=== PATIENT | male | born 1995 | race Caucasian/White ===

== ENCOUNTER 2019-06-15 09:19 | Emergency (ER) | payer MEDICAID ==
[~2019-06-15] VITALS: Ht 167.6 cm; Wt 62.8 kg
--- NOTE | 2019-06-15 10:04 | NUR ---
DISCUSSED PT RECENT HX AND ADMISSION TO [place] FOR [facility] AND HAD CENTRAL LINE, PT HAS DRESSING TO RIGHT UPPER CHEST, NO DRAINAGE OR BLOOD NOTED TO DRESSING, PT NOW AMBULATORY TO XRAY WITH STEADY GAIT.
--- NOTE | 2019-06-15 10:17 | NUR ---
SBAR TO SHAYNA AND GARRY ESCALANTE, GAVE RECENT HX OF ADMISSION INFO AND THAT PT IS GETTING XRAY PER ORDERS AND HAVE NOT ASSESSED PT YET PT WAS IN RADIOLOGY.
[2019-06-15] MEDS ORDERED: ONDA4TAB12 PO (10:28)
[2019-06-15] MEDS ORDERED: ondansetron 4mg rapidly disintigrating tab PO ONE (10:30)
[2019-06-15 10:46] VITALS: BP 108/62
== END 2019-06-15 10:48 | disposition home or self-care (01) ==
LOC: ER 09:20
DX: R11.0 Nausea (principal); R05 Cough; F17.200 Nicotine dependence, unspecified, uncomplicated; Z87.01 Personal history of pneumonia (recurrent); Z79.899 Other long term (current) drug therapy
CPT/HCPCS: 71046; 99283

== ENCOUNTER 2019-06-15 16:34 | Emergency (ER) | payer MEDICAID ==
[~2019-06-15 16:34] MED LIST: ONDA4TAB12 PO
--- NOTE | 2019-06-15 17:02 | NUR ---
Patient left W/O being seen was accompanied by staff member of [facility].
== END 2019-06-15 17:04 | disposition left against medical advice (07) ==
LOC: ER 16:34
DX: Z00.8 Encounter for other general examination (principal); Z53.21 Procedure and treatment not carried out due to patient leaving prior to being seen by health care provider

== ENCOUNTER 2019-06-15 17:37 | Emergency (ER) | payer MEDICAID | END 2019-06-15 19:20 | disposition left against medical advice (07) | LOC: ER 17:38 | DX: R45.851 Suicidal ideations (principal); Z53.21 Procedure and treatment not carried out due to patient leaving prior to being seen by health care provider ==

== ENCOUNTER 2019-07-16 10:29 | Emergency (ER) | payer MEDICAID ==
[~2019-07-16] VITALS: Ht 167.6 cm; Wt 69.2 kg
[2019-07-16 10:32] VITALS: BP 118/62
[2019-07-16] MEDS ORDERED: HYDROcodone/acetaminophen 10/325mg tab PO ONE (11:40)
[2019-07-16] MEDS ORDERED: AMOX-422 PO (11:40)
== END 2019-07-16 12:01 | disposition home or self-care (01) ==
LOC: ER 10:29
DX: K04.7 Periapical abscess without sinus (principal); Z87.01 Personal history of pneumonia (recurrent)
CPT/HCPCS: 99283

== ENCOUNTER 2019-07-26 20:20 | Emergency (ER) | payer MEDICAID ==
[~2019-07-26] VITALS: Ht 167.6 cm; Wt 69.0 kg
[2019-07-26 20:22] VITALS: BP 116/54
[2019-07-26] MEDS ORDERED: MUPI22OI30 TOP (21:01)
== END 2019-07-26 21:10 | disposition home or self-care (01) ==
LOC: ER 20:21
DX: S00.31XA Abrasion of nose, initial encounter (principal); L08.9 Local infection of the skin and subcutaneous tissue, unspecified; Z79.899 Other long term (current) drug therapy; X58.XXXA Exposure to other specified factors, initial encounter; Y93.89 Activity, other specified; Y92.89 Other specified places as the place of occurrence of the external cause; Y99.8 Other external cause status
CPT/HCPCS: 99283

== ENCOUNTER 2019-08-20 12:23 | Emergency (ER) | payer MEDICAID ==
[~2019-08-20] VITALS: Ht 167.6 cm; Wt 68.0 kg
[2019-08-20 12:35] VITALS: BP 106/57
--- NOTE | 2019-08-20 14:55 | NUR ---
TC TO PATIENT TO HAVE HIM RETURN TO ER D/T INGESTION ERROR. PATIENTS PHONE NUMBER LISTED IS [facility] AND PATIENT IS NOT RESIDING THERE.
== END 2019-08-20 14:57 | disposition left against medical advice (07) ==
LOC: ER 12:25
DX: Z53.21 Procedure and treatment not carried out due to patient leaving prior to being seen by health care provider (principal)

== ENCOUNTER 2019-08-22 11:16 | Emergency (ER) | payer MEDICAID ==
[~2019-08-22] VITALS: Ht 167.6 cm; Wt 70.9 kg
[2019-08-22] MEDS ORDERED: ondansetron 4mg rapidly disintigrating tab PO ONE (12:15)
[2019-08-22] MEDS ORDERED: normal saline 1000ML IV soln IVB ONE (13:15)
[2019-08-22 13:38] VITALS: BP 118/97
== END 2019-08-22 14:09 | disposition home or self-care (01) ==
LOC: ER 11:16
DX: F15.10 Other stimulant abuse, uncomplicated (principal); R00.0 Tachycardia, unspecified; R11.0 Nausea; F17.200 Nicotine dependence, unspecified, uncomplicated; Z98.890 Other specified postprocedural states; Z79.899 Other long term (current) drug therapy
CPT/HCPCS: 99283; J7030

== ENCOUNTER 2019-08-24 14:23 | Emergency (ER) | payer MEDICAID ==
[~2019-08-24] VITALS: Ht 162.6 cm; Wt 68.0 kg
[2019-08-24 14:29] VITALS: BP 134/59
== END 2019-08-24 15:21 | disposition home or self-care (01) ==
LOC: ER 14:24
DX: F15.10 Other stimulant abuse, uncomplicated (principal); Z98.890 Other specified postprocedural states; Z79.899 Other long term (current) drug therapy
CPT/HCPCS: 99284

== ENCOUNTER 2019-11-01 02:07 | Emergency (ER) | payer MEDICAID ==
[~2019-11-01] VITALS: Ht 167.6 cm; Wt 63.6 kg
[2019-11-01 02:33] VITALS: BP 121/66
--- NOTE | 2019-11-01 02:45 | NUR ---
PT VOIDING FOR [facility]A AND CHANGED INTO [facility] [employer]
--- NOTE | 2019-11-01 02:49 | NUR ---
LAB HERE FOR DRAW
[2019-11-01 02:59] LABS: BASOPHILS # (AUTO) 0.1 X10'3 (0-0.2); BASOPHILS % (AUTO) 0.8 % (0-1); EOSINOPHILS # (AUTO) 0.2 X10'3 (0-0.9); EOSINOPHILS % (AUTO) 2.2 % (0-6); HEMATOCRIT 40.3 % (42.0-52.0); HEMOGLOBIN 13.9 g/dl (14.0-17.9); LYMPHOCYTES # (AUTO) 3.8 X10'3 (1.1-4.8); LYMPHOCYTES % (AUTO) 47.5 % (21-51); MEAN CORPUSCULAR HGB CONC 34.5 g/dL (33.0-36.5); MEAN CORPUSCULAR VOLUME 89.6 FL (78-98); MONOCYTES # (AUTO) 0.6 X10'3 (0-0.9); MONOCYTES % (AUTO) 7.4 % (2-12); NEUTROPHILS # (AUTO) 3.4 X10'3 (1.8-7.7); NEUTROPHILS % (AUTO) 42.1 % (42-75); PLATELET COUNT 227 X10'3 (140-440); RED BLOOD COUNT 4.49 X10'6 (4.70-6.10); RED CELL DISTRIBUTION WIDTH 12.9 % (11.5-14.5)
[2019-11-01 02:59] LABS: CLARITY,URINE CLEAR (Clear); COLOR,URINE YELLOW (Yellow); GLUCOSE, URINE NEGATIVE (Neg); KETONES,URINE NEGATIVE (Neg); LEUKOCYTE ESTERASE ,URINE NEGATIVE (Neg); NITRITES, URINE NEGATIVE (Neg); OCCULT BLOOD,URINE TRACE-INTACT (Neg); PROTEIN,URINE NEGATIVE (Neg); UROBILINOGEN,URINE 0.2 E.U/dL (0.2-1.0)
--- NOTE | 2019-11-01 03:00 | NUR ---
PT BELONGINGS LOGGED BY SOLEDAD KINNEY AND LOCKED IN [address] LOCKERS
[2019-11-01 03:04] LABS: UA COLLECTION TYPE URINAL
[2019-11-01 03:06] LABS: BACTERIA,URINE NONE SEEN /HPF (Neg); SQUAMOUS EPITHELIAL CELL,UR NONE SEEN /LPF (FEW); WBC,URINE 0-4 /HPF (0-4)
[2019-11-01 03:10] LABS: ANION GAP 5 (8-16); BLOOD UREA NITROGEN 9 MG/DL (7-18); BUN/CREATININE RATIO 11.5 (5.4-32.0); CHLORIDE 108 MMOL/L (99-107); CREATININE 0.78 MG/DL (0.60-1.10); GLUCOSE 106 MG/DL (70-104); POTASSIUM 3.9 MMOL/L (3.5-5.1); SODIUM 141 MMOL/L (135-145); TOTAL CARBON DIOXIDE 28.1 MMOL/L (24-32); eGFR > 90 ML/MIN
[2019-11-01] MEDS ORDERED: CLON0.1T2 PO (03:10)
[2019-11-01] MEDS ORDERED: CHOL20002 PO (03:10)
[2019-11-01] MEDS ORDERED: BUPR150T6 PO (03:10)
[2019-11-01] MEDS ORDERED: BUPR1FIL3 (03:10)
--- NOTE | 2019-11-01 03:10 | NUR ---
PERSONAL MEDS TO PHARMACY
[2019-11-01 03:11] LABS: URINE AMPHETAMINE SCREEN POSITIVE (Neg); URINE BARBITUATE SCREEN NEGATIVE (Neg); URINE BENZODIAZEPINES SCREEN NEGATIVE (Neg); URINE CANNABINOID SCREEN NEGATIVE (Neg); URINE COCAINE SCREEN NEGATIVE (Neg); URINE METHADONE SCREEN NEGATIVE (Neg); URINE OPIATE SCREEN POSITIVE (Neg); URINE PHENCYCLIDINE SCREEN NEGATIVE (Neg)
[2019-11-01 03:11] LABS: ALANINE AMINOTRANSFERASE 25 U/L (12-78); ALBUMIN 3.6 G/DL (3.4-5.0); ALBUMIN/GLOBULIN RATIO 1.2 (1.1-1.5); ALKALINE PHOSPHATASE 68 IU/L (46-116); ASPARTATE AMINO TRANSFERASE 12 U/L (10-37); BILIRUBIN,TOTAL 0.2 MG/DL (0.1-1.0); CALCIUM 8.4 MG/DL (8.5-10.1); TOTAL PROTEIN 6.5 G/DL (6.4-8.2)
[2019-11-01 03:20] LABS: ETHANOL < 0.010 GM/DL (0.0-0.010)
--- NOTE | 2019-11-01 03:25 | NUR ---
REPORT CALLED TO OVERFLOW AVA ANNA ASSESSMENT AND ROOM AND ENVIROMENTAL ASSESSMENT STILL NEED TO BE COMPLETED RECIEVING AVA JAIMES
--- NOTE | 2019-11-01 03:30 | NUR ---
PT TRANSFERED TO OVERFLOW / CLEARED FOR MENTAL HEALTH EVALUATION PT AMBULATED OVER TO OVERFLOW WITH STEADY GAIT REPORT GIVEN TO MAGAN ESCALANTE
--- NOTE | 2019-11-01 03:39 | NUR ---
The patient ambulated to bed 27 from the ER, accompainied by AVA Garcia and Brent MEDINA. He is already in green scrubs and is eating crackers.
--- NOTE | 2019-11-01 04:30 | NUR ---
The patient is asleep on his left side. Resp unlabored. No s/s of distress.
--- NOTE | 2019-11-01 06:45 | NUR ---
PT SLEEING, RESPIRATIONS SPONTENOUS, EVEN AND UNLABORED, NO S/S OF DISTRESS OR DISCOMFORT.
--- NOTE | 2019-11-01 06:45 | NUR ---
PACKET SENT [facility]
--- NOTE | 2019-11-01 09:42 | NUR ---
PT WALKED UP TO NURSES STATION ASKING TO LEAVE AND WANTS TO [facility] [place] [facility], PT DENIES SUICIDAL IDEATION OR HALLUCINATION AT THIS TIME AND JUST REPORTS INCREASED ANXIETY FOR BEING HERE, PT STATES "I HEAR VOICES WHEN I AM USING", PT STATES HE [place] NOT GO [place] [facility] NIGHT BECAUSE HE DID NOT KNOW WHERE IT WAS AND IT WAS COLD, PT REPORTS HE HAS FRIEND STEVEN THAT STAYS [place] [facility] TOO AND CAN COME PICK HIM UP AND BRING [facility] [place] [facility], [facility] [place] [facility] WEE[facility] A[facility] BUT PT STATES HE IS BACK TO USING [place].
--- NOTE | 2019-11-01 11:00 | NUR ---
PATIENTS BELONGINGS INCLUDING 2 BAGS, CLOTHES, JACKET SHOES, MED BOTTLES, AND WALLET RETURNED TO PT. SECURITY ALSO GOT WEAPONS OUT OF LOCK UP AND RETURN TO PT. PT ESCORTED OUT TO LOBBY TO MEET RIDE THAT WILL BRING HIM [place] [facility].
== END 2019-11-01 11:06 | disposition home or self-care (01) ==
LOC: ER 02:07
DX: R45.851 Suicidal ideations (principal); F15.90 Other stimulant use, unspecified, uncomplicated; Z59.0 Homelessness; Z98.890 Other specified postprocedural states; Z79.899 Other long term (current) drug therapy
CPT/HCPCS: 36415; 80053; 80305; 80320; 81001; 84443; 85025; 99284